=== PATIENT | female | born 1950 | race Caucasian/White ===

== ENCOUNTER → 2016-12-24 | Outpatient (CLI) | payer MEDICARE, OTHER ==
[~2016-12-24] MED LIST: AMLODIPINE BESYL5 MG PO; ASPIRIN81 M2 PO; CALCIUM 600 +1 EA11 PO; CITALOPRAM HBR40 MG PO; DESYREL50 MG DOB; DESYREL50 MG PO; DEXFOL PO; LINZESS290 MCG PO; LIPITOR20 MG PO; MIRALAX17 GM PO; MULTIPLE VITAM1 EAC1 PO; [UNRECOGNIZED DRUG - CODE] PO
--- NOTE | ~2016-12-24 | MY11 ---
[facility] A Service of [facility] RADIOLOGY TEXT RESULTS PATIENT: TEJINDER CHRISTIANSON LOCATION: [facility] : 50 UNIT #: [id number] AGE: [address]: Abelino Rice MD SEX: F ORDER DR: [id number] [address] [address] [id number] O MR#: [id number] Acc #: [id number] NAME: TEJINDER CHRISTIANSON : 1950 SEX: F STUDY DATE/TIME: 12/24/2016 9:20 UNIT: [facility] ROOM: STUDY DESCRIPTION: MY Mammogram Screening Dig Nigel Attending Physician: Abelino Rice M.D. Referring Physician: Abelino Rice M.D. Ordering Physician: Abelino Rice M.D. Primary Care Physician: Abelino Rice M.D. MEDICAL IMAGING REPORT This report is preliminary unless electronic signature is present. EXAM Bilateral digital screening mammogram. COMPARISON February 24, 2009 and February 19, 2008. INDICATION Breast cancer screening. 66-year-old asymptomatic female who reports a sister with postmenopausal breast cancer. FINDINGS CAD failed due to minimal inclusion of breast tissue on the implant-displaced views. The best obtainable images were performed. It is difficult to include tissue in the field of view given the patient's fixed and mobile implants. There are scattered fibroglandular densities. There is grossly intact right subglandular silicone breast implant. Along the medial aspect of the left implant, there appears to be new or enlarging focus of extracapsular silicone measuring up to 9 mm at the posteromedial aspect. Within the anterior third of the 10 o'clock left breast, there is a question of an enlarging oval circumscribed mass, measuring approximately 1.3 cm x 0.8 cm x 0.9 cm. This may be due to slight differences in compression and could reflect a benign cyst. No suspicious finding is seen in the right breast. IMPRESSION 1. Grossly intact right subglandular silicone breast implant. 2. New or enlarging focus of extracapsular silicone in the medial posterior third of the left breast measuring up to 9 mm. This is consistent with implant rupture. 3. Questionable enlarging mass in the left breast, possibly reflecting a cyst and possibly appearing enlarged due to differences in compression of the breast. Further evaluation with left breast ultrasound is recommended, focusing on the 10 o'clock location [facility] A Service of [facility] RADIOLOGY TEXT RESULTS PATIENT: TEJINDER CHRISTIANSON LOCATION: [facility] : 50 UNIT #: [id number] AGE: [address]: Abelino Rice MD SEX: F ORDER DR: approximately 3 cm from the nipple. 4. No mammographic evidence of malignancy in the right breast. Patients over the age of 40 are entered into a reminder system with target due date for the next mammogram. A result letter will also be sent to the patient. BIRADS: 0 Incomplete; need additional imaging evaluation and/or prior mammograms for comparison. Dictated by... Erik Rizo M.D. THIS IS AN ELECTRONICALLY VERIFIED REPORT Erik Rizo M.D. at 12/26/2016 11:48 AM Primitivo TD: 12/24/2016 16:13 JOB #: [id number] MEDICAL IMAGING REPORT Page 1 of 1
== END | disposition home or self-care (01) ==
LOC: SMAM 08:16
DX: Z12.31 Encounter for screening mammogram for malignant neoplasm of breast (principal); Z80.3 Family history of malignant neoplasm of breast; Z98.82 Breast implant status
CPT/HCPCS: G0202

== ENCOUNTER → 2017-01-02 | Day surgery (SDC) | payer MEDICARE, OTHER ==
--- NOTE | ~2017-01-02 | OR ---
Unit #: [id number] #: [id number] Patient: TEJINDER CHRISTIANSON [id number] [address] [address] [id number] O MR#: [id number] NAME: TEJINDER CHRISTIANSON ROOM: Date of Procedure: 01/02/2017 Admission Date: 01/02/2017 Surgeon: Yoav Overton M.D. : 1950 Attending Physician: Yoav Overton M.D. Referring Physician: Yoav Overton M.D. Primary Care Physician: Primary Care Physician No OPERATIVE REPORT PREOPERATIVE DIAGNOSIS Colorectal cancer screening in an average-risk patient. PROCEDURES PERFORMED Colonoscopy and polypectomy. POSTOPERATIVE DIAGNOSES 1. A single sessile polyp about 8 mm in size in the proximal sigmoid, removed using snare polypectomy. 2. Rest of the examination up to cecum was normal. The quality of the prep was excellent. No diverticula or hemorrhoids were seen. RECOMMENDATIONS 1. We will follow up the results of polyp histology. 2. Repeat colonoscopy in 5 years. SEDATION USED MAC. DESCRIPTION OF PROCEDURE Following detailed explanation of the potential risks and complications of a colonoscopy, namely perforation, bleeding, and complications related to sedation, the patient was brought to GI lab and laid in the left lateral decubitus position. A digital rectal examination was performed, which was normal. Lubricated tip of the Olympus video colonoscopy was inserted through the anus and advanced under direct vision. The scope was advanced past rectosigmoid into descending colon. No diverticula were noted in this area. The scope tip was then navigated all the way up to cecum with visualization of the ileocecal valve and the appendiceal orifice. Preparation was excellent with good visualization and photodocumentation was obtained. Last several inches of the terminal ileum were also visualized after intubation of the ileocecal valve and appeared normal. Successive segments of the colonic mucosa were examined upon withdrawal. A single sessile polyp was noted in the proximal sigmoid colon. This was about 8 mm in size. It was removed using snare polypectomy. It was retrieved and sent for histology. Excellent hemostasis was achieved and photodocumentation was obtained. No additional polyps were noted. The patient did not have any diverticulosis nor any hemorrhoids. The scope was then withdrawn and the patient returned to the recovery area. She tolerated the procedure without any postprocedure complications. Unit #: [id number] #: [id number] Patient: TEJINDER CHRISTIANSON Dictated by... Jose Carlos Toussaint/elodia TD: 01/02/2017 15:59 JOB #: [id number] CC: Abelino Rice M.D. OPERATIVE REPORT Page 1 of 1 X Yoav Overton MD X PROCEDURE OPERATIVE NOTE
== END | disposition home or self-care (01) ==
LOC: COPS 07:04
DX: Z12.11 Encounter for screening for malignant neoplasm of colon (principal); K63.5 Polyp of colon; F17.210 Nicotine dependence, cigarettes, uncomplicated; I10 Essential (primary) hypertension; E78.5 Hyperlipidemia, unspecified; K59.09 Other constipation; F41.9 Anxiety disorder, unspecified; F32.9 Major depressive disorder, single episode, unspecified; Z88.5 Allergy status to narcotic agent; Z88.8 Allergy status to other drugs, medicaments and biological substances; Z79.82 Long term (current) use of aspirin; Z79.899 Other long term (current) drug therapy; Z98.41 Cataract extraction status, right eye; Z98.42 Cataract extraction status, left eye
CPT/HCPCS: 88305; J2250

== ENCOUNTER → 2017-01-08 | Outpatient (CLI) | payer MEDICARE, OTHER ==
--- NOTE | ~2017-01-08 | US24 ---
[facility] A Service of [facility] RADIOLOGY TEXT RESULTS PATIENT: TEJINDER CHRISTIANSON LOCATION: [facility] : 50 UNIT #: [id number] AGE: [address]: Abelino Rice MD SEX: F ORDER DR: [id number] [facility] [address]. [place], [place] [address] [id number] O MR#: [id number] Acc #: [id number] NAME: TEJINDER CHRISTIANSON : 1950 SEX: F STUDY DATE/TIME: 01/08/2017 9:06 UNIT: [facility] ROOM: STUDY DESCRIPTION: US Breast Unilateral Attending Physician: Abelino Rice M.D. Ordering Physician: Abelino Rice M.D. Primary Care Physician: Abelino Rice M.D. MEDICAL IMAGING REPORT This report is preliminary unless electronic signature is present EXAM Left breast ultrasound INDICATIONS Abnormal screening mammogram. Left breast mass. FINDINGS Abreu-scale and color Doppler ultrasound of the left breast was performed. There is a well circumscribed hypoechoic cyst in the left breast at the 10 o'clock position. This is approximate 3 cm from the nipple. The cyst correlates with the mammographic abnormality measuring 1.1 x 1 x 0.5 cm. In retrospect, this is not significantly changed from 2008 exam where the cyst measures 1.2 x 0.8 cm. Ultrasound also confirms presence of extracapsular silicone consistent with a implant rupture. IMPRESSION 1. Benign left breast ultrasound. Small complex cyst in the medial left breast and extracapsular silicone rupture. BIRADS: 2 - benign findings. Recommendations: Return to annual screening mammogram. Dictated by... Joshua Tamez M.D. THIS IS AN ELECTRONICALLY VERIFIED REPORT Joshua Tamez M.D. at 01/08/2017 1:00 PM [facility]/cmm [facility] A Service of [facility] RADIOLOGY TEXT RESULTS PATIENT: TEJINDER CHRISTIANSON LOCATION: [facility] : 50 UNIT #: [id number] AGE: [address]: Abelino Rice MD SEX: F ORDER DR: TD: 01/08/2017 11:46 JOB #: [id number] MEDICAL IMAGING REPORT Page 1 of 1 COPY
== END | disposition home or self-care (01) ==
LOC: CWCC 08:38
DX: R92.8 Other abnormal and inconclusive findings on diagnostic imaging of breast (principal); N60.02 Solitary cyst of left breast
CPT/HCPCS: 76641